=== PATIENT | male | born 1970 | race Caucasian/White ===

== ENCOUNTER 2017-05-11 01:17 | Observation (INO) ==
[2017-05-11] MEDS ORDERED: Acetaminophen 325 MG TABLET PO PRN (03:42)
[2017-05-11] MEDS ORDERED: *HR* HYDROcodone/Acet 5/325 mg TABLET PO PRN (03:42)
[2017-05-11] MEDS ORDERED: *HR* Promethazine 25 MG/ML VIAL IVP PRN (03:42)
[2017-05-11] MEDS ORDERED: Ondansetron 4 MG/2 ML VIAL IVP PRN (03:42)
[2017-05-11] MEDS ORDERED: Naloxone 0.4 MG/ML INJ IVP PRN (03:42)
[2017-05-11] MEDS ORDERED: Nitroglycerin 0.4 MG TAB.SUBL SL PRN (03:45)
--- NOTE | 2017-05-11 05:14 | Internal Med History&Physical ---
Date of Encounter: 05/11/17 Time of Encounter: 04:30 Assessment and Plan (1) Chest pain Current visit: No Status: Acute Will admit the pt into Tele for observation Will place pt on cardiac care nurse check serial troponin so far negative troponin EKG reviewed - NSR, Non specific ST T changes He does have incomplete RBBB..no prior EKG's to compare will start pt on ASA, Nitro PRN and Morphine IV PRN for pain Will check FLP today Will get stress test if his next trop also WNL.. since pt is high risk for ACS Qualifiers: Chest pain type: unspecified Qualified Code(s): R07.9 - Chest pain, unspecified (2) Neck pain on right side Current visit: Yes Status: Acute Reviewed his CT of Head- No ICH Since pt does c/o significant pain in Rt side of neck..will obtain CT of Neck (3) BPH (benign prostatic hyperplasia) Current visit: Yes Status: Acute resumed home meds Qualifiers: Qualified Code(s): N40.0 - Benign prostatic hyperplasia without lower urinary tract symptoms (4) RBBB Current visit: Yes Status: Acute will get 2 D Echo Internal Medicine - H&P: HPI Chief complaint: Chest pain Admitted From: Emergency Dept Plans for Post Hospital Care: Home History of present illness: Mr. Connor is a 47 year old male with known PMH of BPH presented to [place] [facility] with Left sided Chest pain started y/d. Pt stated his CP located left side, 61/0 in severity, radiating to Left neck initially then Rt side of neck, sharp / pressure like pain and relived by Nitro in the ER. Pt also stated he is feeling nauseated from last 2 days, and felt dizzy last night with chest pain. He does c /o Rt side neck pain now, denied any more CP. He was sent to our hospital for further care. Past Med Surg Social Fam HX - Past Medical History Medical history: other (BPH) Psychiatric history: no psych history - Past Surgical History Surgical History: no surgical history - Social History Smoking Status: Never smoker Smokeless Tobacco Status: No Alcohol use: none Drug use: none - Family History Mother Adopted: No Age: 68 Family Member Ethnicity: Non- Living Status: Still Living Hx Family Cardiac Disorders: No Hx Family Respiratory Disorders: Yes Hx Family Cancer: No Hx Family GI Disorders: No Hx Family Genitourinary Disorders: No Hx Family Endocrine Disorder: Yes Hx Family Musculoskeletal Disorders: No Hx Family Neuromuscular Disorders: No Hx Family Neurologic Disorders: No Hx Family HEENT Disorders: No Hx Family Autoimmune Disorders: No Hx Family Reproductive Disorders: No Hx Family Psychosocial Disorders: No Hx Family Medical Disorders: No Internal Medicine - H&P: Meds Tamsulosin [Flomax] 0.4 mg PO DAILY 05/10/17 [History] 3 Allergy/AdvReac Type Severity Reaction Status Date / Time No Known Allergies Allergy Verified 05/10/17 21:40 All Systems PM: A 10-system review of systems was performed and is negative for pertinent findings except as documented above in the HPI. Review of systems: All the systems are reviewed everything is benign except the systems and symptoms I mentioned in the history of present illness - Constitutional Vitals: Temp Pulse Resp BP Pulse Ox 97.7 F 67 14 113/67 96 05/11/17 03:37 05/11/17 03:37 05/11/17 03:37 05/11/17 03:37 05/11/17 03:37 General appearance: Present: cooperative, A&O X 3, answers questions appropriately - Head Head exam: Present: atraumatic, normal inspection - Neck Neck exam general surgery: Present: supple Additional comments: mild discomfort / tenderness Rt neck region.. No swelling noticed. - Respiratory Respiratory exam: Present: decreased breath sounds. Absent: rales, respiratory distress, rhonchi, wheezes - Cardiovascular Cardiovascular exam: Present: +S1, +S2. Absent: systolic murmur, tachycardia - GI/Abdominal GI/Abdominal exam: Present: normal bowel sounds, soft. Absent: rebound, rigid, tenderness - Extremities Exam Extremities exam: Absent: calf tenderness, pedal edema, tenderness - Back Exam Back exam: Absent: CVA tenderness (L), CVA tenderness (R) - Neurological Exam Neurological exam: Present: alert, oriented X3 - Psychiatric Psychiatric exam: Present: normal affect, normal mood - Skin Skin exam: Absent: rash
[2017-05-11] MEDS ORDERED: 0.9 % Sodium Chloride 1,000 ML IVC SCH (05:15)
[2017-05-11 06:58] LABS: Chol/HDL Ratio 5.3 (0-4.9)
[2017-05-11] MEDS ORDERED: Aspirin Enteric Coated 81 MG Tablet PO SCH (09:00)
--- NOTE | 2017-05-11 13:51 | Discharge Summary ---
Date of Encounter: 05/11/17 Time of Encounter: 09:40 - Discharge Diagnosis (1) Chest pain Priority: Primary Status: Resolved Qualifiers: Chest pain type: precordial pain Qualified Code(s): R07.2 - Precordial pain (2) BPH (benign prostatic hyperplasia) Priority: Secondary Status: Chronic Qualifiers: Lower urinary tract symptom presence: symptoms absent Qualified Code(s): N40.0 - Benign prostatic hyperplasia without lower urinary tract symptoms (3) Neck pain on right side Priority: Secondary Status: Acute (4) RBBB Priority: Secondary Status: Acute - Discharge Medications Home Medications: Tamsulosin [Flomax] 0.4 mg PO DAILY 05/10/17 [History] Allergies/Adverse Reactions: 3 Allergy/AdvReac Type Severity Reaction Status Date / Time No Known Allergies Allergy Verified 05/10/17 21:40 Procedures/tests Complete & Pending: Procedures Performed prior 72 hours Category Date Time Status CT soft tissue neck wo con [CT] Routine Cat Scan 05/11/17 05:50 Completed NM tila perf SPECT multi [NM] Routine Exams 05/11/17 05:06 Taken EV echocardiogram Routine Y 05/11/17 05:51 Completed Date of admission: 05/11/17 03:14 Primary care physician: PCP NONE Discharging clinician: Monalisa Tesfaye Anticipated date of discharge: 05/11/17 - Patient Status Disposition: Home, Self-Care Condition: Good Functional capacity at discharge: independent ambulation Overall status at discharge: patient is progressing back to baseline - Ambulatory Orders Ambulatory Orders: SP pharm nuclear stress Time Frame: 1 Week, Facility: [facility], Location: Cardiopulmonary Svc - Discharge Instructions Instructions: Chest Pain (DC) Follow Up With: Juan Peck MD [Partnered Physician] - (For cardiac stress test in 1-2 weeks. Web request made due to it being the weekend.) NONE,PCP [Primary Care Provider] - (Physician referral number given to patient. ) Thom Maynard [Family Provider] - Additional Instructions: Follow-up appointments: If there is not an appointment listed below, please call your physician and schedule a follow-up appointment. If you have congestive heart failure and your symptoms return, make an appointment with your physician. Medication List: Carry an up to date list of medications you are taking at all time. We have given you an updated medication list including any new medications that you have been prescribed. Please provide that list to your primary provider Symptoms: If your condition changes or you experience any of the following symptoms, notify your physician immediately: Unusual or worsening pain, fever, persistent nausea and vomiting, bleeding, increase in swelling (especially in your legs), sudden weight gain, extreme dizziness, chest pain, increased drainage or redness from a wound or incision. Go to the emergency department if you experience a problem with breathing. Weights: If you have a history of swelling or shortness of breath, weigh yourself daily and notify your physician if you have a weight gain of two or more pounds in one day or 5 or more pounds in a week. If you experience any of the warning signs for stroke: Sudden numbness or weakness of the face, arm or leg; especially on one side of the body, sudden confusion, trouble speaking or understanding, sudden trouble seeing in one or both eyes, sudden trouble walking, dizziness, loss of balance or coordination, sudden sever headache with no cause; Call 911 or go to the emergency room. Stroke is a medical emergency. Some risk factors for stroke: Age, cigarette smoking, diabetes, excessive alcohol consumption, family history , high blood pressure, overweight, physical inactivity, prior stroke, heart attack, diagnosis of carotid artery stenosis or other artery disease. If you smoke, STOP: Smoking or tobacco use significantly increases your risk of heart and lung disease. Your chance of disease greatly increases if you continue to smoke. For more information, call the [place] tobacco quit line for smoking cessation QUIT-NOW ( ) - Diet and Activity Activity: increase activity as tolerated Diet: low fat, low cholesterol, low salt diet Hospital course: Mr. Connor is a 47 year old male patient who presented to the ER with complaints of dizzy spells, chest pressure and right jaw pain. He was suspected of having possible ACS and was hospitalized and placed on telemetry. His troponins were trended. His troponins have been negative. He did have nitro paste on and so we were not able to do Stress test today. A 2-D echocardiogram was done and patient has normal ejection fraction. His right jaw pain appears to be superficial and could be related to sialadenitis or lymphadenitis. It seems to be improved today. He may use NSAIDs for pain relief. Has been not able to do stress test till Saturday, patient wishes to go home. I think this is reasonable at this time as his chest pain has subsided. He will be referred for cardiac stress test as outpatient next week. He is advised to return to the ER if he develops further episodes of chest pain or worsening swelling and pain in his jaw region. - Time Spent with Patient Total time spent providing and/or coordinating discharge services: Greater than 30 minutes (35 min) - Constitutional Vitals: Temp Pulse Resp BP Pulse Ox 98.1 F 72 14 137/77 96 05/11/17 11:01 05/11/17 11:01 05/11/17 11:01 05/11/17 11:01 05/11/17 11:01 General appearance: Present: cooperative, A&O X 3, answers questions appropriately - Respiratory Respiratory exam: Present: CTAB. Absent: accessory muscle use, rales, rhonchi, wheezes - Cardiovascular Cardiovascular exam: Present: RRR, +S1, +S2. Absent: diastolic murmur, gallop, rubs, systolic murmur - GI/Abdominal GI/Abdominal exam: Present: normal bowel sounds, soft, no peritoneal signs. Absent: distended, tenderness - Extremities Exam Extremities exam: Present: warm, radial pulses palpable and symmetrical. Absent : calf tenderness, cyanotic, pedal edema - Neurological Exam Neurological exam: Present: CN II-XII intact, oriented X3, no focal deficits. Absent: facial droop, speech deficit - Skin Skin exam: Present: dry, intact
[2017-05-11 14:43] VITALS: BP 109/76
== END 2017-05-11 14:58 | disposition home or self-care (01) ==
LOC: 3NENU → SUATTDRO 03:14
PROVIDERS: ADMIT Family Medicine; ATTEND Internal Medicine